=== PATIENT | female | born 1970 | race African-American/Black ===

== ENCOUNTER 2020-07-14 11:44 | Day surgery (SDC) | payer BC ==
[2020-07-11 16:25] VITALS: BMI 35.8
[2020-07-14] MEDS ORDERED: PROPOFOL 20 ML ONE (12:05)
[2020-07-14] MEDS ORDERED: fentaNYL CITRATE 250 MCG/5 ML VIAL ONE (12:05)
[2020-07-14] MEDS ORDERED: MIDAZOLAM HCL 2 MG/2 ML SINGLE DOSE VIAL ONE ×3 (12:05→12:57)
[2020-07-14] MEDS ORDERED: BUPIVACAINE HCL/PF 0.5% (5MG/ML) 10 ML VIAL ONE (12:24)
[2020-07-14] MEDS ORDERED: oxyCODONE HCL 5 MG TABLET PO PRN ×2 (12:34)
[2020-07-14] MEDS ORDERED: ONDANSETRON 4 MG/2 ML VIAL IVPUSH PRN (12:34)
[2020-07-14] MEDS ORDERED: ACETAMINOPHEN INJECTION 100 ML IVPB ONE (12:38)
[2020-07-14] MEDS ORDERED: LACTATED RINGERS SOLUTION 1,000 ML IV SCH (12:45)
[2020-07-14] MEDS ORDERED: DEXAMETHASONE SOD PHOSPHATE/PF 10 MG/ML SDV ONE (12:57)
[2020-07-14] MEDS ORDERED: BUPIVACAINE HCL/PF 0.5% (5 MG/ML) 30 ML VIAL IJ ONE ×2 (12:58→14:04)
[2020-07-14] MEDS ORDERED: GLYCOPYRROLATE 0.2 MG/1 ML VIAL ONE ×2 (13:52→14:10)
[2020-07-14] MEDS ORDERED: NEOSTIGMINE METHYLSULFATE 0.5 MG/ML - 10 ML MDV ONE (13:52)
[2020-07-14] MEDS ORDERED: KETOROLAC TROMETHAMINE 30 MG/1 ML VIAL ONE (13:53)
[2020-07-14] MEDS ORDERED: DEXAMETHASONE SOD PHOSPHATE 4 MG/1 ML VIAL ONE ×2 (13:53)
[2020-07-14] MEDS ORDERED: ONDANSETRON 4 MG/2 ML VIAL ONE ×2 (13:53→14:58)
[2020-07-14] MEDS ORDERED: LIDOCAINE HCL/PF 2% SDV 5ML VIAL ONE (13:53)
--- NOTE | 2020-07-14 14:53 | OP ---
DATE OF OPERATION: 07/14/2020 PREOPERATIVE DIAGNOSIS: Cholecystitis, cholelithiasis, umbilical hernia. POSTOPERATIVE DIAGNOSIS: Cholecystitis, cholelithiasis, umbilical hernia. OPERATIVE PROCEDURE: Laparoscopic cholecystectomy and repair of the umbilical hernia. SURGEON: Barbi Loera MD ASSURANCE ASSISTANT: JAKE Blum ANESTHESIA: General endotracheal intubation. DESCRIPTION OF PROCEDURE: Utmpf-fhver-hxbd-old, symptomatic gallstones, was admitted. The patient also had a small umbilical hernia. Incision was made below the umbilicus using open technique, and the fascia was opened and Alessia cannula was placed, and under direct vision 2 lateral incisions and 1 medial incision was made. There were some adhesions of the omentum to the gallbladder which were removed, and the cystic artery and duct were clearly identified and endoclipped, and the gallbladder was removed from the liver edge using the hook, and no complications were encountered. Through the umbilical port, the gallbladder was removed, and the defect in the umbilicus, once it was clearly defined, was repaired with direct suturing 0 Vicryl, and once adequate repair was done, subcutaneous tissue were closed. Patient went to the recovery room. BARBI LOERA M.D. /[id number]
[2020-07-14 15:47] VITALS: TEMP 98.1
[2020-07-14] MEDS ORDERED: oxyCODONE HCL 5 MG TABLET ONE (15:51)
[2020-07-14 17:44] VITALS: BP 138/81; PULSE 81
--- NOTE | 2020-07-18 15:36 | PATH ---
Surgical Pathology Report Patient Name: KE FRANCO [facility]. Rec. #: [id number] /Age/Gender: 1970 (Age: 50) / F Account: [id number] Location: [facility] AMBULATORY Taken: 07/14/2020 Received: 07/14/2020 Reported: 07/18/2020 Physicians: Guanakito Loera M.D. Specimen(s) Received GALLBLADDER Clinical History Cholelithiasis Final Diagnosis GALLBLADDER, LAPAROSCOPIC CHOLECYSTECTOMY: ACUTE AND CHRONIC CHOLECYSTITIS WITH CHOLELITHIASIS. Electronically Signed Yudy Thomas M.D. Gross Description Received in formalin, labeled "gallbladder," is a 7.0 x 3.0 x 2.8 cm. gallbladder with a 0.2 cm. in length portion of cystic duct attached. The outer surface is caban-bose and varies from smooth to shaggy. The lumen contains green, tenacious bile as well as 2 green, irregular cholelith measuring 1.3 and 1.6 cm in greatest dimension. The mucosa is green and velvety with focal erosions. The wall of the gallbladder measures 0.1 cm. in thickness. Voice Over Artist sections are submitted in one cassette. 07/15/2020 [facility]07/15/2020
== END 2020-07-14 17:47 | disposition home or self-care (01) ==
LOC: FASU 11:44
PROVIDERS: ATTEND Surgery Vascular Surgery
PROC: 0WQF4ZZ Repair Abdominal Wall, Percutaneous Endoscopic Approach (ICD-10-PCS; 2020-07-14)
PROC: 0FT44ZZ Resection of Gallbladder, Percutaneous Endoscopic Approach (ICD-10-PCS; principal; 2020-07-14 13:45)
DX: K80.10 Calculus of gallbladder with chronic cholecystitis without obstruction (principal); K42.9 Umbilical hernia without obstruction or gangrene
CPT/HCPCS: 84703; 88304-TC; 94760; J0131

== ENCOUNTER 2021-10-26 09:07 | Day surgery (SDC) | payer OTHER ==
[2021-10-24 14:47] VITALS: BMI 33.5
[2021-10-26] MEDS ORDERED: LIDOCAINE HCL 1%, 10 MG/ML (20ML VIAL) ONE (09:43)
[2021-10-26] MEDS ORDERED: BUPIVACAINE HCL 100 ML ONE (09:43)
[2021-10-26] MEDS ORDERED: LIDOCAINE HCL/PF 2% SDV 5ML VIAL ONE (09:55)
[2021-10-26] MEDS ORDERED: SUCCINYLCHOLINE CHLORIDE 200 MG/10 ML SYRINGE ONE (09:55)
[2021-10-26] MEDS ORDERED: MIDAZOLAM HCL 2 MG/2 ML SINGLE DOSE VIAL ONE (09:55)
[2021-10-26] MEDS ORDERED: ceFAZolin SODIUM 1 GM VIAL ONE (10:56)
[2021-10-26] MEDS ORDERED: GLYCOPYRROLATE 0.2 MG/1 ML VIAL ONE (10:56)
[2021-10-26] MEDS ORDERED: KETOROLAC TROMETHAMINE 30 MG/1 ML VIAL ONE (11:03)
[2021-10-26] MEDS ORDERED: ONDANSETRON 4 MG/2 ML VIAL ONE (11:03)
[2021-10-26] MEDS ORDERED: ONDANSETRON 4 MG/2 ML VIAL IVPUSH PRN (11:31)
[2021-10-26] MEDS ORDERED: oxyCODONE HCL 5 MG TABLET PO PRN (11:31)
[2021-10-26] MEDS ORDERED: ACETAMINOPHEN 325 MG TABLET (FP) PO PRN (11:31)
[2021-10-26] MEDS ORDERED: LACTATED RINGERS SOLUTION 1,000 ML IV SCH (11:45)
[2021-10-26 13:01] VITALS: TEMP 97.8
[2021-10-26 13:03] VITALS: BP 122/67; PULSE 66
[2021-10-26] MEDS ORDERED: ACETAMINOPHEN 325 MG TABLET (FP) ONE (13:05)
== END 2021-10-26 14:29 | disposition home or self-care (01) ==
LOC: FASU 09:07
PROVIDERS: ATTEND Surgery Vascular Surgery
PROC: 0WUF0JZ Supplement Abdominal Wall with Synthetic Substitute, Open Approach (ICD-10-PCS; principal; 2021-10-26 10:56)
DX: K43.2 Incisional hernia without obstruction or gangrene (principal); Z90.49 Acquired absence of other specified parts of digestive tract
CPT/HCPCS: 84703; 94760